=== PATIENT | male | born 1955 | race Caucasian/White ===

== ENCOUNTER 2018-04-09 04:41 | Emergency (ER) | payer SELFPAY ==
[2018-04-09 04:57] VITALS: BP 0/0
--- NOTE | 2018-04-13 20:57 | Emergency Room Report ---
History of Present Illness General Chief Complaint: Abdominal Pain Source: EMS Present Illness HPI Patient checked in for abdominal pain and promptly walked out. I did not see this patient. Allergies: Coded Allergies: No Known Allergies (Verified Allergy, Unknown, 01/10/07) Nursing Documentation-[facility] Past Medical History: No Stated History Medical Decision Making Diagnostic Impression: Primary Impression: lwbs Disposition: LEFT W/OUT BEING SEEN Condition: Stable Referrals: NOT CHOSEN IPA/,REFERRING (PCP) TANO CHAUDHARY M.D. Apr 13, 2018 20:57
== END 2018-04-09 04:50 | disposition left against medical advice (07) ==
LOC: EDBD 04:41 → EMR 04:47
DX: Z53.21 Procedure and treatment not carried out due to patient leaving prior to being seen by health care provider (principal); R10.9 Unspecified abdominal pain